=== PATIENT | female | born 1990 | race Caucasian/White ===

== ENCOUNTER 2017-06-26 19:18 | Emergency (ER) | payer OTHER ==
[~2017-06-26 19:18] MED LIST: IBUPROFEN600 MG PO; LASIX20 MG PO; LORTAB 7.57.5 MG PO; MEDDOSEPAK PO; PRENATA3 PO; TYLENOL PM PO; TYLENOL325 MG PO
== END 2017-06-26 19:38 | disposition left against medical advice (07) | DRG 951 ==
LOC: ED 19:18 → LWOBS 19:38
DX: Z91.19 Patient's noncompliance with other medical treatment and regimen (principal)

== ENCOUNTER → 2018-07-02 | Outpatient (REF) | payer OTHER ==
[~2018-07-02] MED LIST changes: +PAXIL30 MG PO; +TORADOL PO
[2018-07-02 09:21] VITALS: BP 112/58
== END | disposition home or self-care (01) | DRG 394 ==
LOC: BADA 09:00
PROVIDERS: ATTEND Surgery
DX: K60.2 Anal fissure, unspecified (principal); K62.5 Hemorrhage of anus and rectum; K62.89 Other specified diseases of anus and rectum